=== PATIENT | female | born 1965 | race Caucasian/White ===

== ENCOUNTER 2017-07-13 06:49 | Day surgery (SDC) | payer BC ==
[~2017-07-13] VITALS: Ht 167.6 cm; Wt 93.4 kg
[~2017-07-13 06:49] MED LIST: ALEVE220 MG PO; ALIGN4 MG PO; ASAEC PO; C25 PO; DSS PO; LYRICA75 PO; OS500+D PO; OXYCOD PO; OXYCON10 PO; REVLIMID5 MG PO
[2017-07-13 07:55] LABS: BASOPHILS 4.5 %; BASOPHILS ABSOLUTE 0.11 10/3/uL (0.0-0.16); EOSINOPHILS 6.2 %; EOSINOPHILS ABSOLUTE 0.15 10/3/uL (0.0-0.53); HEMATOCRIT 37.5 % (36.0-48.0); HEMOGLOBIN 12.7 g/dL (12.0-16.0); LYMPHOCYTES 24.8 %; MEAN CORPUS HGB CONC 33.9 g/dL (32.0-36.0); MEAN CORPUSCULAR HEMOGLOB 33.7 pg (26.0-34.0); MEAN CORPUSCULAR VOLUME 99.5 fL (80-100); MEAN PLATELET VOLUME 8.6 fL (9.2-13.0); MONOCYTES 13.6 %; MONOCYTES ABSOLUTE 0.33 10/3/uL (0.21-1.20); NEUTROPHILS 50.9 %; NEUTROPHILS ABSOLUTE 1.23 10/3/uL (2.02-8.40); PLATELET COUNT 144 10/3/uL (150-400); RBC DISTRIBUTION WIDTH 14.6 % (12.0-16.0); RED CELL COUNT 3.77 10/6/uL (4.0-5.6); RETICULOCYTE COUNT 2.4 % (0.5-2.5)
[2017-07-13 07:56] LABS: MANUAL DIFF NO %; RETICULOCYTE COUNT ABSOLUTE 90.9 10/3/uL (20.2-119.8); WHITE BLOOD CELLS 2.4 10/3/uL (4.5-10.5)
[2017-07-13 08:05] LABS: BUN (BLOOD UREA NITROGEN) 17 MG/DL (6-23); CALCIUM, SERUM 8.8 MG/DL (8.5-10.4); CHLORIDE, SERUM 111 MMOL/L (96-112); CO2 (CARBON DIOXIDE) 27 MMOL/L (24-34); CREATININE 0.99 MG/DL (0.55-1.02); GFR AFRICAN AMERICAN 75 ML/MIN (>=60); GFR NON AFRICAN AMERICAN 65 ML/MIN (>=60); GLUCOSE, SERUM 97 MG/DL (60-99); POTASSIUM, SERUM 4.2 MMOL/L (3.5-5.3); SODIUM, SERUM 144 MMOL/L (135-148)
== END 2017-07-13 11:45 | disposition home or self-care (01) ==
LOC: SDC 06:49
PROVIDERS: Anesthesiology; Internal Medicine; Pathology Cytopathology
PROC: 07DR3ZX Extraction of Iliac Bone Marrow, Percutaneous Approach, Diagnostic (ICD-10-PCS; principal; 2017-07-13 09:00)
DX: C90.00 Multiple myeloma not having achieved remission (principal); Z90.710 Acquired absence of both cervix and uterus; Z98.890 Other specified postprocedural states; Z94.84 Stem cells transplant status; Z90.722 Acquired absence of ovaries, bilateral
CPT/HCPCS: 80048; 85025; 85045; 88305; 88311; 88313; 88360